=== PATIENT | female | born 1935 | race Caucasian/White ===

== ENCOUNTER 2019-01-27 13:48 | Inpatient (IN) | payer MEDICARE, OTHER, MEDICAID ==
[~2019-01-27] VITALS: Ht 152.4 cm; Wt 90.2 kg
[~2019-01-27 13:48] MED LIST: ALBU2.5V13 NEB; AMIO200T40 PO; CARV6.253 PO; COU4T PO; DIGO125T78 PO; FURO-61 PO; LIRA0.6P2 SUBCUT; METF500T PO; POTA2TAB17 PO; SIMV40TA4 PO
[2019-01-27] MEDS ORDERED: normal saline 1000ml 1,000 ML IV ONE (13:51)
--- NOTE | 2019-01-27 14:05 | NUR ---
Pt had cup of tea at 0800 this morning, no food since last night.
[2019-01-27 14:50] LABS: BASOPHILS # (AUTO) 0.1 X10'3 (0-0.2); BASOPHILS % (AUTO) 1.2 % (0-1); EOSINOPHILS # (AUTO) 0.1 X10'3 (0-0.9); EOSINOPHILS % (AUTO) 2.1 % (0-6); HEMATOCRIT 36.1 % (35.0-45.0); HEMOGLOBIN 11.7 g/dl (12.0-16.0); LYMPHOCYTES # (AUTO) 1.2 X10'3 (1.1-4.8); LYMPHOCYTES % (AUTO) 19.3 % (21-51); MEAN CORPUSCULAR HEMOGLOBIN 27.6 PG (27.0-31.0); MEAN CORPUSCULAR HGB CONC 32.5 g/dL (33.0-36.5); MEAN CORPUSCULAR VOLUME 84.8 FL (78-98); MEAN PLATELET VOLUME 9.3 FL (7.4-10.4); MONOCYTES # (AUTO) 0.4 X10'3 (0-0.9); MONOCYTES % (AUTO) 6.8 % (2-12); NEUTROPHILS # (AUTO) 4.4 X10'3 (1.8-7.7); NEUTROPHILS % (AUTO) 70.6 % (42-75); PLATELET COUNT 208 X10'3 (140-440); RED BLOOD COUNT 4.26 X10'6 (4.20-5.60); RED CELL DISTRIBUTION WIDTH 16.3 % (11.5-14.5); WHITE BLOOD COUNT 6.2 X10'3 (4.5-11.0)
[2019-01-27 15:08] LABS: INR 1.1 INR; PARTIAL THROMBOPLASTIN TIME 29 SECONDS (22-32)
[2019-01-27 15:12] LABS: ALANINE AMINOTRANSFERASE 26 U/L (12-78); ALBUMIN 3.3 G/DL (3.4-5.0); ALKALINE PHOSPHATASE 89 IU/L (46-116); ANION GAP 9 (8-16); ASPARTATE AMINO TRANSFERASE 17 U/L (10-37); BILIRUBIN,TOTAL 0.6 MG/DL (0.1-1.0); BLOOD UREA NITROGEN 34 MG/DL (7-18); BUN/CREATININE RATIO 20.1 (6.6-38.0); CALCIUM 9.4 MG/DL (8.5-10.1); CHLORIDE 104 MMOL/L (99-107); CREATININE 1.69 MG/DL (0.40-0.90); GLUCOSE 164 MG/DL (70-104); POTASSIUM 3.8 MMOL/L (3.5-5.1); SODIUM 141 MMOL/L (135-145); TOTAL CARBON DIOXIDE 27.7 MMOL/L (24-32); TOTAL PROTEIN 6.5 G/DL (6.4-8.2); eGFR 29 ML/MIN
[2019-01-27] MEDS ORDERED: AMIO100T4 PO (16:10)
[2019-01-27] MEDS ORDERED: FLUT100D2 INH (16:10)
[2019-01-27] MEDS ORDERED: APIX5TAB3 PO (16:10)
[2019-01-27] MEDS ORDERED: vancomycin/NS 1 GM ADD-VANTAGE 250 ML IV ONE (16:10)
[2019-01-27] MEDS ORDERED: normal saline 1000ml 1,000 ML IV SCH (16:27)
[2019-01-27] MEDS ORDERED: mag hydrox/Alum hydrox/simeth 30ml oral suspension PO PRN (16:30)
[2019-01-27] MEDS ORDERED: magnesium hydroxide 30ml (MOM) UD suspension PO PRN (16:30)
[2019-01-27] MEDS ORDERED: acetaminophen 325mg tablet PO PRN (16:30)
[2019-01-27] MEDS ORDERED: ondansetron/PF 4mg/2ml inj IV PRN (16:30)
[2019-01-27] MEDS ORDERED: albuterol 2.5 MG/3 ML nebule NEB PRN (17:05)
[2019-01-27] MEDS ORDERED: furosemide 20MG tablet PO SCH (20:00)
[2019-01-27] MEDS ORDERED: budesonide 0.5mg/2ml UD nebule IH PRN (20:00)
[2019-01-27] MEDS: amiodarone 100mg tablet PO SCH (20:25)
[2019-01-27] MEDS: carvedilol 6.25mg tablet PO SCH (20:25)
[2019-01-27] MEDS ORDERED: diltiazem 5mg/ml 5ml inj. IV ONE (21:00)
--- NOTE | 2019-01-27 21:01 | NUR ---
Patient received her routine evening heart medications and is now has a persistent heart rate of 134 and a known history of a-fib. Dr. Taveras notified of patient's condition and history, and an order for cardizem drip and 15mg cardizem IV push.
--- NOTE | 2019-01-27 22:13 | NUR ---
Patient's rate went from 134 to 88 with 15mg IV cardizem push. Will continue to closely monitor HR for need to start IV drip.
[2019-01-27] MEDS: diltiazem-D5W 125mg/125ml 125 ML IV SCH (22:55)
--- NOTE | 2019-01-28 04:19 | NUR ---
Patient is sleeping comfortably in bed. No signs of distress.
[2019-01-28 07:36] LABS: BASOPHILS % (AUTO) 0.6 % (0-1); EOSINOPHILS # (AUTO) 0.2 X10'3 (0-0.9); EOSINOPHILS % (AUTO) 3.3 % (0-6); HEMATOCRIT 34.7 % (35.0-45.0); HEMOGLOBIN 11.4 g/dl (12.0-16.0); LYMPHOCYTES # (AUTO) 0.8 X10'3 (1.1-4.8); LYMPHOCYTES % (AUTO) 13.8 % (21-51); MEAN CORPUSCULAR HEMOGLOBIN 27.9 PG (27.0-31.0); MEAN CORPUSCULAR HGB CONC 32.7 g/dL (33.0-36.5); MEAN CORPUSCULAR VOLUME 85.2 FL (78-98); MEAN PLATELET VOLUME 9.6 FL (7.4-10.4); MONOCYTES # (AUTO) 0.4 X10'3 (0-0.9); NEUTROPHILS % (AUTO) 74.3 % (42-75); PLATELET COUNT 189 X10'3 (140-440); RED BLOOD COUNT 4.08 X10'6 (4.20-5.60); RED CELL DISTRIBUTION WIDTH 16.5 % (11.5-14.5); WHITE BLOOD COUNT 5.4 X10'3 (4.5-11.0)
[2019-01-28 07:46] LABS: ALBUMIN 2.9 G/DL (3.4-5.0); ANION GAP 7 (8-16); BLOOD UREA NITROGEN 30 MG/DL (7-18); BUN/CREATININE RATIO 19.6 (6.6-38.0); CALCIUM 8.9 MG/DL (8.5-10.1); CHLORIDE 108 MMOL/L (99-107); CREATININE 1.53 MG/DL (0.40-0.90); GLUCOSE 123 MG/DL (70-104); POTASSIUM 3.7 MMOL/L (3.5-5.1); SODIUM 145 MMOL/L (135-145); eGFR 32 ML/MIN
[2019-01-28] MEDS: carvedilol 6.25mg tablet PO SCH ×2 (08:00→21:46)
[2019-01-28] MEDS ORDERED: dextrose 50%-water 50ml dispensing syringe IV PRN ×2 (08:10)
[2019-01-28] MEDS ORDERED: MESSAGE TO PHARMACY PO ONE (08:10)
[2019-01-28] MEDS ORDERED: glucagon, human recombinant 1mg kit SUBCUT PRN (08:10)
[2019-01-28] MEDS ORDERED: dextrose ORAL solution 15 GM/59 ML bottle PO PRN ×2 (08:10)
[2019-01-28 09:16] LABS: HEMOGLOBIN A1C 7.8 % (4.5-6.2)
[2019-01-28] MEDS: CefTRIAXone/D5W-Rocephin 1gm 50 ML IV SCH (11:03)
[2019-01-28] MEDS ORDERED: MESSAGE TO NURSING PO ONE ×4 (14:50)
[2019-01-28] MEDS ORDERED: cefazolin/dext.iso 2gm/50ml 50 ML IV ONE (14:50)
[2019-01-28] MEDS ORDERED: vancomycin/NS 1 GM ADD-VANTAGE 250 ML IV ONE (14:50)
--- NOTE | 2019-01-28 15:30 | NUR ---
Received report from Issa MARTINEZ in ED. Awaiting patient's arrival to [id number].
[2019-01-28 15:48] LABS: MEAN CORPUSCULAR HEMOGLOBIN 27.5 PG (27.0-31.0); MEAN CORPUSCULAR HGB CONC 32.4 g/dL (33.0-36.5); MEAN PLATELET VOLUME 9.2 FL (7.4-10.4); PLATELET COUNT 207 X10'3 (140-440); RED BLOOD COUNT 4.35 X10'6 (4.20-5.60); RED CELL DISTRIBUTION WIDTH 16.9 % (11.5-14.5); WHITE BLOOD COUNT 7.7 X10'3 (4.5-11.0)
[2019-01-28 16:01] LABS: ALBUMIN 3.1 G/DL (3.4-5.0); ANION GAP 4 (8-16); BLOOD UREA NITROGEN 26 MG/DL (7-18); BUN/CREATININE RATIO 16.6 (6.6-38.0); CHLORIDE 105 MMOL/L (99-107); CREATININE 1.57 MG/DL (0.40-0.90); GLUCOSE 215 MG/DL (70-104); POTASSIUM 3.8 MMOL/L (3.5-5.1); SODIUM 141 MMOL/L (135-145); eGFR 31 ML/MIN
[2019-01-28 16:10] LABS: INR 1.1 INR; PARTIAL THROMBOPLASTIN TIME 27 SECONDS (22-32)
--- NOTE | 2019-01-28 16:15 | NUR ---
Patient arrived to 3013B on hospital bed from ED. VS T:98.2, HR:94, RR:20, BP:127/82, SP02 95 RA, pain:0/10. Patient in no acute distress. Toni at bedside doing pacer interrogation, will continue to monitor.
[2019-01-28 18:00] VITALS: BP 106/75
--- NOTE | 2019-01-28 18:30 | NUR ---
Problems reprioritized. Patient report given, questions answered & plan of care reviewed with Mariel MARTINEZ.
[2019-01-28] MEDS: diltiazem-D5W 125mg/125ml 125 ML IV SCH (18:31)
[2019-01-28] MEDS: vancomycin/NS 1 GM ADD-VANTAGE 250 ML IV SCH (19:30)
[2019-01-28] MEDS ORDERED: metoprolol tartrate 12.5mg (1/2 tablet) PO SCH (20:00)
[2019-01-28] MEDS: furosemide 20 MG/2 ML vial IV SCH (21:46)
[2019-01-28] MEDS: amiodarone 100mg tablet PO SCH (21:46)
[2019-01-28] MEDS: mupirocin 2% nasal ointment 1gm UD NS SCH (21:46)
[2019-01-28] MEDS: insulin glargine (Lantus) pen - multi-dose SQ SCH (21:50)
[2019-01-28 22:00] VITALS: BP 120/70
[2019-01-29] VITALS (22 sets, daily range): BP systolic 93–132; BP diastolic 60–97
[2019-01-29 05:48] LABS: BASOPHILS % (AUTO) 0.4 % (0-1); EOSINOPHILS # (AUTO) 0.2 X10'3 (0-0.9); EOSINOPHILS % (AUTO) 2.4 % (0-6); HEMATOCRIT 33.4 % (35.0-45.0); HEMOGLOBIN 10.9 g/dl (12.0-16.0); LYMPHOCYTES # (AUTO) 0.9 X10'3 (1.1-4.8); LYMPHOCYTES % (AUTO) 12.5 % (21-51); MEAN CORPUSCULAR HEMOGLOBIN 27.8 PG (27.0-31.0); MEAN CORPUSCULAR HGB CONC 32.5 g/dL (33.0-36.5); MEAN CORPUSCULAR VOLUME 85.4 FL (78-98); MEAN PLATELET VOLUME 9.7 FL (7.4-10.4); MONOCYTES # (AUTO) 0.6 X10'3 (0-0.9); NEUTROPHILS # (AUTO) 5.7 X10'3 (1.8-7.7); NEUTROPHILS % (AUTO) 76.7 % (42-75); PLATELET COUNT 190 X10'3 (140-440); RED BLOOD COUNT 3.91 X10'6 (4.20-5.60); RED CELL DISTRIBUTION WIDTH 16.2 % (11.5-14.5); WHITE BLOOD COUNT 7.5 X10'3 (4.5-11.0)
[2019-01-29 05:58] LABS: ALBUMIN 2.8 G/DL (3.4-5.0); ANION GAP 6 (8-16); BLOOD UREA NITROGEN 33 MG/DL (7-18); BUN/CREATININE RATIO 22.3 (6.6-38.0); CALCIUM 8.6 MG/DL (8.5-10.1); CHLORIDE 106 MMOL/L (99-107); CREATININE 1.48 MG/DL (0.40-0.90); GLUCOSE 107 MG/DL (70-104); POTASSIUM 3.8 MMOL/L (3.5-5.1); SODIUM 142 MMOL/L (135-145); TOTAL CARBON DIOXIDE 29.6 MMOL/L (24-32); eGFR 34 ML/MIN
--- NOTE | 2019-01-29 06:40 | NUR ---
Patient in room PCU 3013. I have received report from Mariel MARTINEZ and had the opportunity to ask questions and assume patient care. Patient sleeping, will continue to monitor.
[2019-01-29] MEDS: CefTRIAXone/D5W-Rocephin 1gm 50 ML IV SCH (07:30)
[2019-01-29] MEDS: carvedilol 6.25mg tablet PO SCH ×2 (07:31→21:11)
[2019-01-29] MEDS: mupirocin 2% nasal ointment 1gm UD NS SCH ×2 (07:31→20:00)
[2019-01-29] MEDS: furosemide 20 MG/2 ML vial IV SCH ×2 (07:32→21:10)
[2019-01-29] MEDS ORDERED: hydrALAZINE 20mg/ml inj. IV PRN (07:40)
[2019-01-29] MEDS ORDERED: ondansetron/PF 4mg/2ml inj IV PRN (07:40)
[2019-01-29] MEDS ORDERED: fentaNYL/PF 50MCG/1 ML 2ML syringe IV PRN ×2 (07:40)
[2019-01-29] MEDS ORDERED: ringers solution, lacted 1,000 ML IV SCH (07:40)
[2019-01-29] MEDS ORDERED: labetalol 20mg/4ml (5mg/ml) syringe IV PRN (07:40)
[2019-01-29] MEDS ORDERED: morphine 4 MG/ML inj SYRINge IV PRN ×2 (07:40)
[2019-01-29] MEDS ORDERED: ceFAZolin 1000mg inj ONE (08:58)
[2019-01-29] MEDS ORDERED: BUPIVAcaine/PF 2.5mg/ml (0.25%) 10ml vial ONE (08:58)
[2019-01-29] MEDS ORDERED: niCARDipine in NS 40mg/200ml (0.2mg/ml) IVPB IV ONE (09:04)
[2019-01-29] MEDS ORDERED: phenylephrine 10mg/ml inj. ONE (09:04)
[2019-01-29] MEDS ORDERED: sevoflurane 250ml liquid IH ONE (09:04)
[2019-01-29] MEDS ORDERED: morphine 10mg/ml inj. ONE (09:09)
[2019-01-29] MEDS ORDERED: etomidate 2mg/ml inj. ONE (09:10)
--- NOTE | 2019-01-29 09:10 | NUR ---
Patient to OR. Called report to recovery room.
[2019-01-29] MEDS ORDERED: MESSAGE TO NURSING PO ONE (10:00)
[2019-01-29] MEDS ORDERED: HYDROcodone/acetaminophen 5mg/325mg tablet PO PRN (10:10)
--- NOTE | 2019-01-29 10:11 | NUR ---
Received from OR via BED, accompanied by Anesthesiologist DR COLEY and report given by Anesthesiologist. PT VERY DROWSY, NO S/S OF DISTRESS/DISCOMFORT, LEFT UPPER CHEST W/INCISION W/CLEAR DRSG COVERING, SCANT AMT OF S/S DRAINAGE, SUPERIOR EDGE OF INCISION SLIGHTLY SWOLLEN, NO OTHER SWELLING NOTED, 1 LITER SALINE BAG OVER TOP OF INCISION. Addendum: 01/29/19 at 1036 by Krystyna Tran RN Amended: Links added.
--- NOTE | 2019-01-29 11:21 | NUR ---
Report called to receiving nurse. Transferred in stable condition on CM via bed, no Belongings, receiving RN at bedside to receive pt, BLL, side rails up x 2, call light given to pt, assessed incision w/RN, no changes noted. Special Issues communicated to receiving nurse. Yes. Addendum: 01/29/19 at 1143 by Krystyna Tran RN Amended: Links added.
[2019-01-29] MEDS: insulin Lispro (HumaLOG) vial - multi-dose SQ SCH ×2 (14:00→19:49)
[2019-01-29] MEDS: vancomycin/NS 1 GM ADD-VANTAGE 250 ML IV SCH (17:47)
--- NOTE | 2019-01-29 18:20 | NUR ---
[place] documentation: I have reviewed and agree with all interventions, assessments performed and documented by Evelyn MARTINEZ. [facility] Medication Administration: For this medication-pass time frame, all medication were reviewed, dispensed, administered and documented per hospital policy by Evelyn MARTINEZ.
--- NOTE | 2019-01-29 18:35 | NUR ---
Problems reprioritized. Patient report given, questions answered & plan of care reviewed with Brittney MARTINEZ and Álvaro MARTINEZ.
[2019-01-29] MEDS: diltiazem-D5W 125mg/125ml 125 ML IV SCH (21:10)
[2019-01-29] MEDS: lactobacillus rhamnosus 10,000 MMU CELLS/CAPSULE PO SCH (21:11)
[2019-01-29] MEDS: amiodarone 100mg tablet PO SCH (21:11)
[2019-01-29] MEDS: insulin glargine (Lantus) pen - multi-dose SQ SCH (21:31)
[2019-01-30] VITALS (13 sets, daily range): BP systolic 90–106; BP diastolic 50–72
--- NOTE | 2019-01-30 06:00 | NUR ---
Patient in room PCU 3013. I have received report from Álvaro MARTINEZ and Lucita MARTINEZ and had the opportunity to ask questions and assume patient care.
[2019-01-30 06:14] LABS: BASOPHILS % (AUTO) 0.3 % (0-1); EOSINOPHILS # (AUTO) 0.2 X10'3 (0-0.9); EOSINOPHILS % (AUTO) 3.2 % (0-6); HEMATOCRIT 34.1 % (35.0-45.0); HEMOGLOBIN 10.8 g/dl (12.0-16.0); LYMPHOCYTES # (AUTO) 0.8 X10'3 (1.1-4.8); LYMPHOCYTES % (AUTO) 10.9 % (21-51); MEAN CORPUSCULAR HEMOGLOBIN 27.6 PG (27.0-31.0); MEAN CORPUSCULAR HGB CONC 31.7 g/dL (33.0-36.5); MONOCYTES # (AUTO) 0.5 X10'3 (0-0.9); MONOCYTES % (AUTO) 7.6 % (2-12); NEUTROPHILS # (AUTO) 5.5 X10'3 (1.8-7.7); PLATELET COUNT 186 X10'3 (140-440); RED BLOOD COUNT 3.92 X10'6 (4.20-5.60); RED CELL DISTRIBUTION WIDTH 16.5 % (11.5-14.5)
[2019-01-30 06:17] LABS: ALBUMIN 2.7 G/DL (3.4-5.0); ANION GAP 4 (8-16); BLOOD UREA NITROGEN 21 MG/DL (7-18); BUN/CREATININE RATIO 14.8 (6.6-38.0); CALCIUM 8.6 MG/DL (8.5-10.1); CHLORIDE 107 MMOL/L (99-107); CREATININE 1.42 MG/DL (0.40-0.90); GLUCOSE 91 MG/DL (70-104); POTASSIUM 3.8 MMOL/L (3.5-5.1); SODIUM 142 MMOL/L (135-145); TOTAL CARBON DIOXIDE 31.1 MMOL/L (24-32); eGFR 35 ML/MIN
[2019-01-30] MEDS: carvedilol 6.25mg tablet PO SCH ×2 (07:36→20:00)
[2019-01-30] MEDS: lactobacillus rhamnosus 10,000 MMU CELLS/CAPSULE PO SCH ×2 (07:36→20:40)
[2019-01-30] MEDS: CefTRIAXone/D5W-Rocephin 1gm 50 ML IV SCH (07:36)
[2019-01-30] MEDS: furosemide 20 MG/2 ML vial IV SCH (07:36)
[2019-01-30] MEDS: mupirocin 2% nasal ointment 1gm UD NS SCH ×2 (07:38→11:53)
[2019-01-30] MEDS: insulin Lispro (HumaLOG) vial - multi-dose SQ SCH ×3 (08:58→19:19)
--- NOTE | 2019-01-30 11:15 | NUR ---
PAGER ID: [phone] MESSAGE: [phone] Love Chandra Per PT, need new order for eval/treat due to pt receiving anesthesia yesterday. Ok to put in order? Galina MARTINEZ [id number]
[2019-01-30] MEDS ORDERED: carvedilol 6.25mg tablet PO ONE (13:40)
--- NOTE | 2019-01-30 14:15 | NUR ---
Cardizem drip discontinued. PO cardizem held due to SBP of 92, will continue to monitor. HR 96.
[2019-01-30] MEDS: apixaban 5mg tablet PO SCH ×2 (14:17→20:40)
--- NOTE | 2019-01-30 15:45 | NUR ---
PAGER ID: [phone] MESSAGE: [id number] ChandraFawnCarter C/o 06/23 pain R leg, warm to touch, pt states similar to previous pain r/t DVT. Venous ultrasound? Galina MARTINEZ [id number] Addendum: 01/30/19 at 1548 by Claribel Kulkarni RN Received order for doppler of R leg, restarting of eliquis will likely resolve any DVT if present. Also notified of holding cardizem due to decreased SBP, no new orders received in that regard.
--- NOTE | 2019-01-30 16:00 | NUR ---
Problems reprioritized. Patient report given, questions answered & plan of care reviewed with Álvaro MARTINEZ and Lucita MARTINEZ. Addendum: 01/30/19 at 1843 by Claribel Kulkarni RN Wrong time documented, report given at 1800
--- NOTE | 2019-01-30 16:14 | NUR ---
PAGER ID: [phone] MESSAGE: [id number] Fawn Chandra. Only has [place] for pain, allergy to [place]. Pt would like Tylenol for pain. Ok to put order in? Galina MARTINEZ [id number]
[2019-01-30] MEDS ORDERED: VANCOMYCIN LEVEL IV ONE (16:30)
[2019-01-30] MEDS: acetaminophen 325mg tablet PO PRN (16:59)
[2019-01-30] MEDS: vancomycin/NS 1 GM ADD-VANTAGE 250 ML IV SCH (17:34)
[2019-01-30] MEDS: amiodarone 100mg tablet PO SCH (20:40)
[2019-01-30] MEDS: insulin glargine (Lantus) pen - multi-dose SQ SCH (20:51)
[2019-01-31 03:45] VITALS: BP 118/65
[2019-01-31 05:17] LABS: ALBUMIN 2.4 G/DL (3.4-5.0); ANION GAP 9 (8-16); BLOOD UREA NITROGEN 25 MG/DL (7-18); BUN/CREATININE RATIO 18.2 (6.6-38.0); CHLORIDE 104 MMOL/L (99-107); CREATININE 1.37 MG/DL (0.40-0.90); GLUCOSE 88 MG/DL (70-104); POTASSIUM 3.6 MMOL/L (3.5-5.1); SODIUM 140 MMOL/L (135-145); eGFR 37 ML/MIN
[2019-01-31 06:00] VITALS: BP 115/65
--- NOTE | 2019-01-31 06:56 | NUR ---
Patient in room PCU 3013. I have received report from Lucita MARTINEZ/Álvaro MARTINEZ and had the opportunity to ask questions and assume patient care.
[2019-01-31] MEDS ORDERED: furosemide 20 MG/2 ML vial IV SCH (08:00)
--- NOTE | 2019-01-31 08:30 | NUR ---
Spoke with Dr Arora, notified of patient's new onset numbness in R foot with associated R knee pain. After talking to patient, MD states likely r/t arthritis, still pending doppler study, will contact vascular studies. Received orders to D/C lasix, change coreg to 6.25mg, and to add oxycodone 5/325 q6h prn for severe pain management as patient is still in considerable pain, first dose now.
[2019-01-31] MEDS: insulin Lispro (HumaLOG) vial - multi-dose SQ SCH (08:38)
[2019-01-31] MEDS: lactobacillus rhamnosus 10,000 MMU CELLS/CAPSULE PO SCH (08:39)
[2019-01-31] MEDS: CefTRIAXone/D5W-Rocephin 1gm 50 ML IV SCH (08:39)
[2019-01-31] MEDS: apixaban 5mg tablet PO SCH (08:39)
[2019-01-31] MEDS: carvedilol 6.25mg tablet PO SCH (08:40)
[2019-01-31] MEDS ORDERED: oxyCODONE/APAP 5-325mg tablet PO PRN (08:45)
[2019-01-31] MEDS ORDERED: carvedilol 6.25mg tablet PO SCH (08:45)
[2019-01-31] MEDS: acetaminophen 325mg tablet PO PRN (10:11)
--- NOTE | 2019-01-31 11:43 | NUR ---
Page to Dr Arora re: Room 3013B DAMIAN Jackson discharge orders received, awaiting completion of discharge meds, please advise Dayan [phone]. call back from Dr Ulysses Dr awaiting results of doppler exam
--- NOTE | 2019-01-31 12:15 | NUR ---
Patient awaiting discharge. Declilned blood glucose check.
[2019-01-31] MEDS ORDERED: CEPH500C5 PO (12:59)
[2019-01-31] MEDS ORDERED: PER5325T PO (12:59)
[2019-01-31] MEDS ORDERED: DOCU-28 PO ×2 (12:59→13:10)
--- NOTE | 2019-01-31 13:01 | NUR ---
DM consult: Pt with A1c 7.8 seen at bedside. Pt reports that she is discharging soon and presents with no questions about DM management. Written protein and DM education with referral to outpatient DM class and RD contact information provided. Will remain available. Addendum: 01/31/19 at [address] Amended: Links added.
--- NOTE | 2019-01-31 14:20 | NUR ---
[place]ee documentation: I have reviewed and agree with interventions, assessments performed and documented by MICHELLE Hanley.
--- NOTE | 2019-01-31 14:29 | NUR ---
Patient discharged stable, discharge instructions given to patient and family, patient verbalized understanding, PIV removed cannula intact, tele box removed, all belongings returned to patient, patient wheeled out via w/c by staff to private vehicle with family
[2019-01-31] MEDS ORDERED: vancomycin inj 1,250 MG in NS 250ml IV soln IV SCH (17:00)
[2019-02-03] MEDS ORDERED: VANCOMYCIN LEVEL IV NR (16:30)
== END 2019-01-31 13:55 | disposition home or self-care (01) | DRG 261 ==
LOC: ER 13:49 → PCU 3S 01-28 17:27 → CMPBEDREQ 01-28 22:39
PROVIDERS: ADMIT Family Medicine; ATTEND Internal Medicine
PROC: 0WB80ZZ Excision of Chest Wall, Open Approach (ICD-10-PCS; 2019-01-27)
PROC: 0JWT0PZ Revision of Cardiac Rhythm Related Device in Trunk Subcutaneous Tissue and Fascia, Open Approach (ICD-10-PCS; principal; 2019-01-29 09:04)
DX: T82.190A Other mechanical complication of cardiac electrode, initial encounter (principal); T81.30XA Disruption of wound, unspecified, initial encounter; I42.9 Cardiomyopathy, unspecified; N17.9 Acute kidney failure, unspecified; I13.0 Hypertensive heart and chronic kidney disease with heart failure and stage 1 through stage 4 chronic kidney disease, or unspecified chronic kidney disease; I48.91 Unspecified atrial fibrillation; I25.10 Atherosclerotic heart disease of native coronary artery without angina pectoris; Y71.2 Prosthetic and other implants, materials and accessory cardiovascular devices associated with adverse incidents; I50.9 Heart failure, unspecified; K30 Functional dyspepsia; M17.11 Unilateral primary osteoarthritis, right knee; E78.5 Hyperlipidemia, unspecified; E11.22 Type 2 diabetes mellitus with diabetic chronic kidney disease; N18.9 Chronic kidney disease, unspecified; I25.5 Ischemic cardiomyopathy; I48.2 Chronic atrial fibrillation; I25.2 Old myocardial infarction; Z95.1 Presence of aortocoronary bypass graft; Z95.810 Presence of automatic (implantable) cardiac defibrillator; Z91.018 Allergy to other foods; Z88.8 Allergy status to other drugs, medicaments and biological substances; Z86.73 Personal history of transient ischemic attack (TIA), and cerebral infarction without residual deficits; Y92.89 Other specified places as the place of occurrence of the external cause
CPT/HCPCS: 36415; 71045; 71046; 80048; 80053; 80202; 82948; 83036; 83605; 83735; 84145; 85025; 85027; 85610; 85730; 86885; 86900; 86901; 87040; 87070; 87176; 93005; 93306; 93971; 94760; 96361; 96365; 96375; 97116; 99285; A4565; A6258; A7000; G0378; J0690; J0696; J1815; J1940; J2270; J2370; J2405; J3010; J3370; J3490; J7030; J7120

== ENCOUNTER 2019-02-03 22:51 | Inpatient (IN) | payer MEDICARE, OTHER, MEDICAID ==
[~2019-02-03] VITALS: Ht 152.4 cm; Wt 70.5 kg
[~2019-02-03 22:51] MED LIST changes: +AMIO100T4 PO; -AMIO200T40 PO; +APIX5TAB3 PO; +CEPH500C5 PO; -COU4T PO; -DIGO125T78 PO; +DOCU-28 PO; +FLUT100D2 INH; -FURO-61 PO; -LIRA0.6P2 SUBCUT; -METF500T PO; +PER5325T PO; -POTA2TAB17 PO; -SIMV40TA4 PO
[2019-02-03 23:25] LABS: BASOPHILS # (AUTO) 0.1 X10'3 (0-0.2); BASOPHILS % (AUTO) 1.2 % (0-1); EOSINOPHILS # (AUTO) 0.2 X10'3 (0-0.9); HEMATOCRIT 32.2 % (35.0-45.0); HEMOGLOBIN 10.6 g/dl (12.0-16.0); LYMPHOCYTES # (AUTO) 1.1 X10'3 (1.1-4.8); LYMPHOCYTES % (AUTO) 16.9 % (21-51); MEAN CORPUSCULAR HEMOGLOBIN 27.8 PG (27.0-31.0); MEAN CORPUSCULAR HGB CONC 32.8 g/dL (33.0-36.5); MEAN CORPUSCULAR VOLUME 84.6 FL (78-98); MEAN PLATELET VOLUME 8.9 FL (7.4-10.4); MONOCYTES # (AUTO) 0.7 X10'3 (0-0.9); MONOCYTES % (AUTO) 11.2 % (2-12); NEUTROPHILS # (AUTO) 4.4 X10'3 (1.8-7.7); NEUTROPHILS % (AUTO) 67.7 % (42-75); PLATELET COUNT 257 X10'3 (140-440); RED BLOOD COUNT 3.81 X10'6 (4.20-5.60); RED CELL DISTRIBUTION WIDTH 16.5 % (11.5-14.5); WHITE BLOOD COUNT 6.4 X10'3 (4.5-11.0)
[2019-02-03] MEDS ORDERED: GLIP10TA21 PO (23:29)
[2019-02-03] MEDS ORDERED: AMIO100T PO (23:29)
[2019-02-03] MEDS ORDERED: AMIO200T40 PO (23:29)
[2019-02-03] MEDS ORDERED: METF-438 PO (23:29)
[2019-02-03] MEDS ORDERED: FURO20TA4 PO (23:29)
[2019-02-03] MEDS ORDERED: APIX5TAB3 PO (23:29)
[2019-02-03] MEDS ORDERED: diltiazem 5mg/ml 5ml inj. IV ONE ×2 (23:30→23:50)
[2019-02-03 23:34] LABS: INR 1.1 INR; PARTIAL THROMBOPLASTIN TIME 30 SECONDS (22-32)
[2019-02-03 23:36] LABS: ALANINE AMINOTRANSFERASE 64 U/L (12-78); ALBUMIN 2.9 G/DL (3.4-5.0); ALBUMIN/GLOBULIN RATIO 0.9 (1.1-1.5); ALKALINE PHOSPHATASE 133 IU/L (46-116); ANION GAP 8 (8-16); ASPARTATE AMINO TRANSFERASE 33 U/L (10-37); BILIRUBIN,TOTAL 0.4 MG/DL (0.1-1.0); BLOOD UREA NITROGEN 30 MG/DL (7-18); BUN/CREATININE RATIO 18.3 (6.6-38.0); CALCIUM 9.3 MG/DL (8.5-10.1); CHLORIDE 103 MMOL/L (99-107); CREATININE 1.64 MG/DL (0.40-0.90); GLUCOSE 160 MG/DL (70-104); POTASSIUM 3.8 MMOL/L (3.5-5.1); SODIUM 138 MMOL/L (135-145); TOTAL CARBON DIOXIDE 27.3 MMOL/L (24-32); TOTAL PROTEIN 6.3 G/DL (6.4-8.2); eGFR 30 ML/MIN
[2019-02-04] VITALS (24 sets, daily range): BP systolic 90–118; BP diastolic 60–96
[2019-02-04] MEDS ORDERED: furosemide 10 MG/1 ML 10ml inj IV ONE (00:10)
[2019-02-04] MEDS ORDERED: diltiazem-D5W 125mg/125ml 125 ML IV SCH (00:10)
--- NOTE | 2019-02-04 00:51 | NUR ---
PT PACEMAKER INTEROGATED USING [employer] MACHINE, THE PATIENT IS UNSURE WHAT BRAND IT ACTUALLY IS , BUT IT SEEMED TO WORK.
--- NOTE | 2019-02-04 01:02 | NUR ---
CONFIRMED PT HAS A [employer] PACERMAKER/DEFIB, PT INTERROGATION REPORT IS UNREMARKABLE.
[2019-02-04] MEDS ORDERED: magnesium hydroxide 30ml (MOM) UD suspension PO PRN (01:05)
[2019-02-04] MEDS ORDERED: acetaminophen 325mg tablet PO PRN (01:05)
[2019-02-04] MEDS ORDERED: mag hydrox/Alum hydrox/simeth 30ml oral suspension PO PRN (01:05)
[2019-02-04] MEDS ORDERED: ondansetron/PF 4mg/2ml inj IV PRN (01:05)
[2019-02-04] MEDS ORDERED: BUDESONIDE 0.25 MG/2 ML AMPUL.NEB IH PRN (01:20)
[2019-02-04] MEDS ORDERED: digoxin 250mcg (0.25mg) tablet PO ONE (01:20)
[2019-02-04] MEDS ORDERED: dextrose ORAL solution 15 GM/59 ML bottle PO PRN ×2 (01:20)
[2019-02-04] MEDS ORDERED: dextrose 50%-water 50ml dispensing syringe IV PRN ×2 (01:20)
[2019-02-04] MEDS ORDERED: MESSAGE TO PHARMACY PO ONE (01:20)
[2019-02-04] MEDS ORDERED: glucagon, human recombinant 1mg kit SUBCUT PRN (01:20)
--- NOTE | 2019-02-04 01:39 | NUR ---
DR LLOYD AT BEDSIDE
--- NOTE | 2019-02-04 01:52 | NUR ---
CARDIZEM GTT INCREASED TO 7.5 MG/HR
[2019-02-04] MEDS: diltiazem-D5W 125mg/125ml 125 ML IV SCH ×3 (02:10→12:50)
--- NOTE | 2019-02-04 04:02 | NUR ---
Spoke with Dr Enriquez regarding patient's HR of 130-135 BPM, ordered increase of cardizem gtt to 10. Will continue to monitor closely
--- NOTE | 2019-02-04 06:20 | NUR ---
Problems reprioritized. Patient report given, questions answered & plan of care reviewed with MICHELLE Cohen and MICHELLE Rivas.
--- NOTE | 2019-02-04 06:21 | NUR ---
[place] documentation: I have reviewed and agree with all interventions, assessments performed and documented by Rodney MARTINEZ. [place] Medication Administration: For this medication-pass time frame, all medication were reviewed, dispensed, administered and documented per hospital policy by Rodney MARTINEZ.
--- NOTE | 2019-02-04 06:36 | NUR ---
Patient in room PCU 3012. I have received report from Rodney MARTINEZ and had the opportunity to ask questions and assume patient care. Patient sleeping, cardizem gtt running, will continue to monitor.
[2019-02-04] MEDS: BUDESONIDE 0.25 MG/2 ML AMPUL.NEB IH SCH ×2 (07:35→20:02)
[2019-02-04] MEDS: carvedilol 6.25mg tablet PO SCH ×2 (08:00→20:09)
[2019-02-04] MEDS ORDERED: furosemide 20MG tablet PO SCH (08:00)
[2019-02-04] MEDS: cephalexin 250mg capsule PO SCH ×3 (08:00→20:08)
[2019-02-04] MEDS: apixaban 5mg tablet PO SCH ×2 (08:20→20:09)
[2019-02-04] MEDS: amiodarone 100mg tablet PO SCH (08:20)
[2019-02-04] MEDS: docusate sod 100mg capsule PO SCH ×2 (08:20→20:00)
[2019-02-04 08:42] LABS: ALBUMIN 2.8 G/DL (3.4-5.0); ANION GAP 6 (8-16); BLOOD UREA NITROGEN 27 MG/DL (7-18); BUN/CREATININE RATIO 17.1 (6.6-38.0); CHLORIDE 103 MMOL/L (99-107); CREATININE 1.58 MG/DL (0.40-0.90); GLUCOSE 139 MG/DL (70-104); POTASSIUM 3.4 MMOL/L (3.5-5.1); SODIUM 139 MMOL/L (135-145); TOTAL CARBON DIOXIDE 29.9 MMOL/L (24-32); eGFR 31 ML/MIN
[2019-02-04] MEDS ORDERED: magnesium 4gm in 100ml NS 100 ML IV PRN (09:05)
[2019-02-04] MEDS ORDERED: magnesium Cl slow-release 64mg tablet PO PRN (09:05)
[2019-02-04] MEDS ORDERED: potassium Cl 40MEQ/NS 500ml 500 ML IV PRN ×2 (09:05)
[2019-02-04] MEDS ORDERED: potassium Cl 20 mEq SR tablet PO PRN (09:05)
[2019-02-04] MEDS: potassium Cl 20 mEq SR tablet PO PRN ×3 (09:31→20:09)
[2019-02-04] MEDS: normal saline 1000ml 1,000 ML IV SCH ×2 (09:31→23:20)
[2019-02-04 09:34] LABS: MAGNESIUM 1.7 MG/DL (1.5-2.4)
[2019-02-04] MEDS: insulin Lispro (HumaLOG) vial - multi-dose SQ SCH (13:17)
--- NOTE | 2019-02-04 18:24 | NUR ---
Problems reprioritized. Patient report given, questions answered & plan of care reviewed with Mariel MARTINEZ.
[2019-02-04] MEDS: insulin glargine (Lantus) pen - multi-dose SQ SCH (21:22)
[2019-02-05] VITALS (11 sets, daily range): BP systolic 101–127; BP diastolic 64–73
[2019-02-05] MEDS: diltiazem-D5W 125mg/125ml 125 ML IV SCH ×2 (01:49→21:30)
[2019-02-05 04:49] LABS: BASOPHILS # (AUTO) 0.1 X10'3 (0-0.2); EOSINOPHILS # (AUTO) 0.3 X10'3 (0-0.9); EOSINOPHILS % (AUTO) 5.7 % (0-6); HEMATOCRIT 33.1 % (35.0-45.0); HEMOGLOBIN 10.7 g/dl (12.0-16.0); LYMPHOCYTES % (AUTO) 15.8 % (21-51); MEAN CORPUSCULAR HEMOGLOBIN 27.4 PG (27.0-31.0); MEAN CORPUSCULAR HGB CONC 32.2 g/dL (33.0-36.5); MEAN CORPUSCULAR VOLUME 85.2 FL (78-98); MEAN PLATELET VOLUME 8.9 FL (7.4-10.4); MONOCYTES # (AUTO) 0.7 X10'3 (0-0.9); MONOCYTES % (AUTO) 11.4 % (2-12); NEUTROPHILS % (AUTO) 66.1 % (42-75); PLATELET COUNT 260 X10'3 (140-440); RED BLOOD COUNT 3.88 X10'6 (4.20-5.60); RED CELL DISTRIBUTION WIDTH 16.6 % (11.5-14.5); WHITE BLOOD COUNT 6.1 X10'3 (4.5-11.0)
[2019-02-05 05:23] LABS: ALANINE AMINOTRANSFERASE 45 U/L (12-78); ALBUMIN 2.3 G/DL (3.4-5.0); ALBUMIN/GLOBULIN RATIO 0.8 (1.1-1.5); ALKALINE PHOSPHATASE 109 IU/L (46-116); ANION GAP 6 (8-16); ASPARTATE AMINO TRANSFERASE 23 U/L (10-37); BILIRUBIN,TOTAL 0.4 MG/DL (0.1-1.0); BLOOD UREA NITROGEN 26 MG/DL (7-18); BUN/CREATININE RATIO 19.7 (6.6-38.0); CALCIUM 8.9 MG/DL (8.5-10.1); CHLORIDE 107 MMOL/L (99-107); CREATININE 1.32 MG/DL (0.40-0.90); GLUCOSE 100 MG/DL (70-104); POTASSIUM 4.5 MMOL/L (3.5-5.1); SODIUM 140 MMOL/L (135-145); TOTAL CARBON DIOXIDE 27.2 MMOL/L (24-32); TOTAL PROTEIN 5.2 G/DL (6.4-8.2); eGFR 38 ML/MIN
[2019-02-05] MEDS: apixaban 5mg tablet PO SCH ×2 (07:38→20:56)
[2019-02-05] MEDS: amiodarone 100mg tablet PO SCH (07:38)
[2019-02-05] MEDS: cephalexin 250mg capsule PO SCH ×3 (07:38→20:56)
[2019-02-05] MEDS: docusate sod 100mg capsule PO SCH ×2 (07:38→20:00)
[2019-02-05] MEDS: BUDESONIDE 0.25 MG/2 ML AMPUL.NEB IH SCH ×2 (07:47→20:04)
[2019-02-05] MEDS: carvedilol 6.25mg tablet PO SCH ×2 (08:00→20:56)
[2019-02-05] MEDS: insulin Lispro (HumaLOG) vial - multi-dose SQ SCH ×3 (09:29→20:52)
[2019-02-05] MEDS: normal saline 1000ml 1,000 ML IV SCH (14:14)
--- NOTE | 2019-02-05 18:33 | NUR ---
Problems reprioritized. Patient report given, questions answered & plan of care reviewed with Lucita MARTINEZ.
[2019-02-05] MEDS: insulin glargine (Lantus) pen - multi-dose SQ SCH (21:00)
[2019-02-06 02:00] VITALS: BP 123/66
[2019-02-06] MEDS: normal saline 1000ml 1,000 ML IV SCH ×2 (02:55→18:42)
[2019-02-06 05:34] LABS: BASOPHILS % (AUTO) 0.6 % (0-1); EOSINOPHILS # (AUTO) 0.3 X10'3 (0-0.9); EOSINOPHILS % (AUTO) 4.2 % (0-6); HEMATOCRIT 34.4 % (35.0-45.0); HEMOGLOBIN 11.1 g/dl (12.0-16.0); LYMPHOCYTES # (AUTO) 0.6 X10'3 (1.1-4.8); LYMPHOCYTES % (AUTO) 8.7 % (21-51); MEAN CORPUSCULAR HEMOGLOBIN 27.6 PG (27.0-31.0); MEAN CORPUSCULAR HGB CONC 32.2 g/dL (33.0-36.5); MEAN CORPUSCULAR VOLUME 85.7 FL (78-98); MEAN PLATELET VOLUME 8.9 FL (7.4-10.4); MONOCYTES # (AUTO) 0.5 X10'3 (0-0.9); MONOCYTES % (AUTO) 7.5 % (2-12); NEUTROPHILS # (AUTO) 5.5 X10'3 (1.8-7.7); PLATELET COUNT 329 X10'3 (140-440); RED BLOOD COUNT 4.01 X10'6 (4.20-5.60); RED CELL DISTRIBUTION WIDTH 16.7 % (11.5-14.5)
[2019-02-06 06:00] VITALS: BP 126/75
--- NOTE | 2019-02-06 06:24 | NUR ---
Patient in room PCU 3012. I have received report from Lucita MARTINEZ and had the opportunity to ask questions and assume patient care.
[2019-02-06 06:31] LABS: ALANINE AMINOTRANSFERASE 43 U/L (12-78); ALBUMIN 2.6 G/DL (3.4-5.0); ALBUMIN/GLOBULIN RATIO 0.8 (1.1-1.5); ALKALINE PHOSPHATASE 119 IU/L (46-116); ANION GAP 10 (8-16); ASPARTATE AMINO TRANSFERASE 22 U/L (10-37); BILIRUBIN,TOTAL 0.5 MG/DL (0.1-1.0); BLOOD UREA NITROGEN 24 MG/DL (7-18); CALCIUM 9.3 MG/DL (8.5-10.1); CHLORIDE 104 MMOL/L (99-107); CREATININE 1.26 MG/DL (0.40-0.90); GLUCOSE 171 MG/DL (70-104); POTASSIUM 4.5 MMOL/L (3.5-5.1); SODIUM 139 MMOL/L (135-145); TOTAL CARBON DIOXIDE 24.8 MMOL/L (24-32); TOTAL PROTEIN 5.9 G/DL (6.4-8.2); eGFR 40 ML/MIN
[2019-02-06] MEDS: amiodarone 100mg tablet PO SCH (07:11)
[2019-02-06] MEDS: apixaban 5mg tablet PO SCH ×2 (07:11→20:32)
[2019-02-06] MEDS: docusate sod 100mg capsule PO SCH ×2 (07:11→20:22)
[2019-02-06] MEDS: cephalexin 250mg capsule PO SCH ×3 (07:11→20:32)
[2019-02-06] MEDS: carvedilol 6.25mg tablet PO SCH ×2 (08:00→20:32)
[2019-02-06] MEDS: BUDESONIDE 0.25 MG/2 ML AMPUL.NEB IH SCH ×2 (08:06→18:53)
[2019-02-06] MEDS: insulin Lispro (HumaLOG) vial - multi-dose SQ SCH ×2 (08:43→13:28)
[2019-02-06] MEDS ORDERED: diltiazem CD 120mg capsule (once-daily) PO SCH (10:40)
[2019-02-06 11:00] VITALS: BP 130/77
[2019-02-06 15:00] VITALS: BP 91/52
--- NOTE | 2019-02-06 16:46 | NUR ---
Sent page to Dr. Hinds: PAGER ID: [phone] MESSAGE: [phone] Chandra: Patient has SOB, says she feels "a lot of fluid on her." Lungs do sound wet. NS running at 70/hr, would you like to decrease or DC? Thanks, Vicki [phone]
[2019-02-06 18:30] VITALS: BP 120/68
--- NOTE | 2019-02-06 18:30 | NUR ---
Problems reprioritized. Patient report given, questions answered & plan of care reviewed with Lucita MARTINEZ.
[2019-02-06] MEDS: lactobacillus rhamnosus 10,000 MMU CELLS/CAPSULE PO SCH (20:21)
[2019-02-06] MEDS: insulin glargine (Lantus) pen - multi-dose SQ SCH (20:25)
[2019-02-06 22:30] VITALS: BP 112/70
[2019-02-07] VITALS (7 sets, daily range): BP systolic 93–112; BP diastolic 62–70
[2019-02-07 05:22] LABS: BASOPHILS # (AUTO) 0.1 X10'3 (0-0.2); BASOPHILS % (AUTO) 0.9 % (0-1); EOSINOPHILS # (AUTO) 0.3 X10'3 (0-0.9); EOSINOPHILS % (AUTO) 5.7 % (0-6); HEMATOCRIT 31.2 % (35.0-45.0); HEMOGLOBIN 9.9 g/dl (12.0-16.0); LYMPHOCYTES # (AUTO) 0.7 X10'3 (1.1-4.8); LYMPHOCYTES % (AUTO) 11.9 % (21-51); MEAN CORPUSCULAR HEMOGLOBIN 27.3 PG (27.0-31.0); MEAN CORPUSCULAR HGB CONC 31.8 g/dL (33.0-36.5); MEAN CORPUSCULAR VOLUME 85.9 FL (78-98); MEAN PLATELET VOLUME 8.6 FL (7.4-10.4); MONOCYTES # (AUTO) 0.6 X10'3 (0-0.9); MONOCYTES % (AUTO) 9.3 % (2-12); NEUTROPHILS # (AUTO) 4.3 X10'3 (1.8-7.7); NEUTROPHILS % (AUTO) 72.2 % (42-75); PLATELET COUNT 279 X10'3 (140-440); RED BLOOD COUNT 3.63 X10'6 (4.20-5.60); RED CELL DISTRIBUTION WIDTH 16.3 % (11.5-14.5); WHITE BLOOD COUNT 5.9 X10'3 (4.5-11.0)
[2019-02-07 05:30] LABS: ALANINE AMINOTRANSFERASE 35 U/L (12-78); ALBUMIN 2.1 G/DL (3.4-5.0); ALBUMIN/GLOBULIN RATIO 0.8 (1.1-1.5); ALKALINE PHOSPHATASE 99 IU/L (46-116); ANION GAP 4 (8-16); ASPARTATE AMINO TRANSFERASE 18 U/L (10-37); BILIRUBIN,TOTAL 0.3 MG/DL (0.1-1.0); BLOOD UREA NITROGEN 21 MG/DL (7-18); BUN/CREATININE RATIO 22.3 (6.6-38.0); CALCIUM 8.3 MG/DL (8.5-10.1); CHLORIDE 109 MMOL/L (99-107); CREATININE 0.94 MG/DL (0.40-0.90); GLUCOSE 128 MG/DL (70-104); POTASSIUM 4.1 MMOL/L (3.5-5.1); SODIUM 140 MMOL/L (135-145); TOTAL CARBON DIOXIDE 26.7 MMOL/L (24-32); TOTAL PROTEIN 4.9 G/DL (6.4-8.2); eGFR 57 ML/MIN
[2019-02-07] MEDS: BUDESONIDE 0.25 MG/2 ML AMPUL.NEB IH SCH ×2 (07:45→20:51)
[2019-02-07] MEDS ORDERED: diltiazem CD 120mg capsule (once-daily) PO SCH (08:00)
--- NOTE | 2019-02-07 08:40 | NUR ---
PAGER ID: [phone] MESSAGE: [id number] pt Prateek has scheduled Coreg and Cardizem with hold parameters and her BP was 94/62 is 99/64 Addendum: 02/07/19 at 0841 by Luna Cobos RN PAGER ID: [phone] MESSAGE: [id number] nadine Chandra would you like Coreg and Cardizem still given with the lowered BP? Thank you - Luna [phone] Addendum: 02/07/19 at 0849 by Luna Cobos RN Give Coreg and stop Navizem Addendum: 02/07/19 at 0849 by Luna Cobos RN Per Dr. Hinds
[2019-02-07] MEDS: amiodarone 100mg tablet PO SCH (08:45)
[2019-02-07] MEDS: apixaban 5mg tablet PO SCH ×2 (08:45→20:13)
[2019-02-07] MEDS: cephalexin 250mg capsule PO SCH ×3 (08:45→20:13)
[2019-02-07] MEDS: lactobacillus rhamnosus 10,000 MMU CELLS/CAPSULE PO SCH ×2 (08:45→20:06)
[2019-02-07] MEDS: docusate sod 100mg capsule PO SCH ×2 (08:45→20:06)
[2019-02-07] MEDS: carvedilol 6.25mg tablet PO SCH ×2 (08:51→20:13)
[2019-02-07] MEDS: insulin Lispro (HumaLOG) vial - multi-dose SQ SCH ×2 (09:08→13:09)
[2019-02-07] MEDS ORDERED: furosemide 20 MG/2 ML vial IV ONE (09:20)
--- NOTE | 2019-02-07 11:22 | NUR ---
Patient in room PCU 3012. I have received report from Lucita MARTINEZ and had the opportunity to ask questions and assume patient care.
--- NOTE | 2019-02-07 12:51 | NUR ---
Page to rehabilitation technician re: Stat EKG room 3012B Karen Chandra
[2019-02-07] MEDS ORDERED: diltiazem CD 120mg capsule (once-daily) PO ONE (13:20)
--- NOTE | 2019-02-07 13:20 | NUR ---
PAGER ID: [phone] MESSAGE: [id number] pt Chandra PO Cardizem order was 120 mg PO q day. Would you like this to stay the same or change it to BID since you mentioned an evening dose? - Luna 1880
--- NOTE | 2019-02-07 14:03 | NUR ---
[place] documentation and medication administration: I have reviewed and agree with interventions, and assessments performed and documented by MICHELLE Hanley. For this medication-pass time frame, medications were reviewed, dispensed, administered and documented per hospital policy by MICHELLE Hanley.
--- NOTE | 2019-02-07 17:41 | NUR ---
Patients blood glucose test results 66, retest on other hand 67, patient denies sweating, shakiness, lightheadedness or dizziness, orange juice given, dinner trays to be delivered soon Addendum: 02/07/19 at 1743 by Dayan Talley RN Amended: Links added. Addendum: 02/07/19 at 1828 by Luna Cobos RN [facility] 73 on retest
--- NOTE | 2019-02-07 18:25 | NUR ---
PAGER ID: [phone] MESSAGE: [id number] pt Prateek SALGADO per patient patient takes Lasix 40 mg two tablets BID (total of 160 mg a day). She said her home med rec information was incorrect. Thank you
--- NOTE | 2019-02-07 18:28 | NUR ---
Problems reprioritized. Patient report given, questions answered & plan of care reviewed with MICHELLE Landrum.
[2019-02-07] MEDS: insulin glargine (Lantus) pen - multi-dose SQ SCH (20:10)
[2019-02-08 02:30] VITALS: BP 101/61
[2019-02-08 05:28] LABS: ALANINE AMINOTRANSFERASE 34 U/L (12-78); ALBUMIN 2.4 G/DL (3.4-5.0); ALBUMIN/GLOBULIN RATIO 0.8 (1.1-1.5); ALKALINE PHOSPHATASE 108 IU/L (46-116); ANION GAP 6 (8-16); ASPARTATE AMINO TRANSFERASE 19 U/L (10-37); BILIRUBIN,TOTAL 0.4 MG/DL (0.1-1.0); BLOOD UREA NITROGEN 22 MG/DL (7-18); BUN/CREATININE RATIO 20.2 (6.6-38.0); CALCIUM 9.1 MG/DL (8.5-10.1); CHLORIDE 105 MMOL/L (99-107); CREATININE 1.09 MG/DL (0.40-0.90); GLUCOSE 139 MG/DL (70-104); POTASSIUM 4.3 MMOL/L (3.5-5.1); SODIUM 138 MMOL/L (135-145); TOTAL CARBON DIOXIDE 26.6 MMOL/L (24-32); TOTAL PROTEIN 5.4 G/DL (6.4-8.2); eGFR 48 ML/MIN
[2019-02-08 05:52] LABS: BASOPHILS % (AUTO) 0.6 % (0-1); EOSINOPHILS # (AUTO) 0.3 X10'3 (0-0.9); EOSINOPHILS % (AUTO) 4.7 % (0-6); HEMATOCRIT 33.5 % (35.0-45.0); HEMOGLOBIN 10.7 g/dl (12.0-16.0); LYMPHOCYTES # (AUTO) 0.7 X10'3 (1.1-4.8); LYMPHOCYTES % (AUTO) 10.3 % (21-51); MEAN CORPUSCULAR HEMOGLOBIN 27.5 PG (27.0-31.0); MEAN CORPUSCULAR HGB CONC 32.1 g/dL (33.0-36.5); MEAN CORPUSCULAR VOLUME 85.7 FL (78-98); MEAN PLATELET VOLUME 8.9 FL (7.4-10.4); MONOCYTES # (AUTO) 0.7 X10'3 (0-0.9); MONOCYTES % (AUTO) 9.5 % (2-12); NEUTROPHILS # (AUTO) 5.4 X10'3 (1.8-7.7); NEUTROPHILS % (AUTO) 74.9 % (42-75); PLATELET COUNT 322 X10'3 (140-440); RED BLOOD COUNT 3.91 X10'6 (4.20-5.60); RED CELL DISTRIBUTION WIDTH 16.4 % (11.5-14.5); WHITE BLOOD COUNT 7.2 X10'3 (4.5-11.0)
[2019-02-08 07:00] VITALS: BP 110/64
[2019-02-08] MEDS: carvedilol 6.25mg tablet PO SCH (07:56)
[2019-02-08] MEDS: apixaban 5mg tablet PO SCH (07:57)
[2019-02-08] MEDS: lactobacillus rhamnosus 10,000 MMU CELLS/CAPSULE PO SCH (07:58)
[2019-02-08] MEDS: cephalexin 250mg capsule PO SCH (07:58)
[2019-02-08] MEDS: docusate sod 100mg capsule PO SCH (07:58)
[2019-02-08] MEDS: amiodarone 100mg tablet PO SCH (07:58)
[2019-02-08] MEDS ORDERED: diltiazem CD 120mg capsule (once-daily) PO SCH (08:00)
[2019-02-08] MEDS: BUDESONIDE 0.25 MG/2 ML AMPUL.NEB IH SCH (08:03)
[2019-02-08] MEDS: insulin Lispro (HumaLOG) vial - multi-dose SQ SCH (08:10)
[2019-02-08] MEDS ORDERED: AMIO100T PO (10:25)
[2019-02-08] MEDS ORDERED: FURO20TA4 PO (10:25)
[2019-02-08 11:00] VITALS: BP 100/60
== END 2019-02-08 13:30 | disposition home or self-care (01) | DRG 308 ==
LOC: ER 22:52 → PCU 3S 02-04 02:23 → CMPBEDREQ 02-04 02:26
PROVIDERS: ADMIT Internal Medicine; ATTEND Internal Medicine
DX: I48.91 Unspecified atrial fibrillation (principal); N17.0 Acute kidney failure with tubular necrosis; T81.31XA Disruption of external operation (surgical) wound, not elsewhere classified, initial encounter; I48.92 Unspecified atrial flutter; E87.6 Hypokalemia; I25.10 Atherosclerotic heart disease of native coronary artery without angina pectoris; E11.9 Type 2 diabetes mellitus without complications; I49.9 Cardiac arrhythmia, unspecified; E78.5 Hyperlipidemia, unspecified; I50.9 Heart failure, unspecified; Y83.1 Surgical operation with implant of artificial internal device as the cause of abnormal reaction of the patient, or of later complication, without mention of misadventure at the time of the procedure; I25.2 Old myocardial infarction; Z90.49 Acquired absence of other specified parts of digestive tract; Z95.1 Presence of aortocoronary bypass graft; Z95.810 Presence of automatic (implantable) cardiac defibrillator; Z88.6 Allergy status to analgesic agent; Z88.8 Allergy status to other drugs, medicaments and biological substances; Z91.018 Allergy to other foods; Z79.899 Other long term (current) drug therapy; Z86.73 Personal history of transient ischemic attack (TIA), and cerebral infarction without residual deficits; Y92.89 Other specified places as the place of occurrence of the external cause
CPT/HCPCS: 36415; 71045; 80048; 80053; 82948; 83605; 83735; 83880; 84484; 85025; 85610; 85730; 87040; 87070; 93005; 94640; 94760; 96365; 96375; 96376; 99285; G0378; J1815; J1940; J3490; J7030